=== PATIENT | female | born 1965 | race Hispanic/Latino ===

== ENCOUNTER → 2020-07-23 | Day surgery (SDC) | payer OTHER, SELFPAY ==
[~2020-07-23] MED LIST: FENTANYL CITRATE/PF 100MCG/2 ML INJ ONE; HYOSCYAMINE 0.125 MG TAB ONE; LIDOCAINE HCL 2% LOCAL INJ 5 ML SDV VIAL INJ ONE; MIDAZOLAM HCL 2 MG/2 ML VIAL ONE; PANTOPRAZOLE SO40 MG PO; PROPOFOL IV EMULSION 10 MG/ML 20 ML VIAL ONE; VYTORIN 10-201 EACH PO; XYZAL5 MG PO; ZINC SULFATE220 MG PO
[2020-07-23 16:45] VITALS: BP 113/65
--- NOTE | 2020-07-23 18:21 | Operative Report ---
DATE OF PROCEDURE: 07/23/2020 SURGEON: Jordan Ramsay MD PROCEDURES: EGD with biopsies and a colonoscopy. INDICATIONS FOR EGD: Upper abdominal pain, bloating. INDICATIONS FOR COLONOSCOPY: Colorectal cancer screening. MEDICATIONS: The patient was done under MAC, please see anesthesiologist's note. PROCEDURE IN DETAIL: With the patient in the left lateral decubitus position, a flexible fiberoptic Olympus gastroscope was introduced into the esophagus under direct visualization without any difficulty. There was some patchy erythema noted in the distal esophagus. The scope was then advanced with ease into the stomach, mucosa overlying the antrum and the body revealed some diffuse erythema and [id number] edema, and biopsies were obtained, and sent to stain for H. pylori. There were some a extrinsic compression noted along the anterior wall of the antrum. Pylorus was intubated with ease and the scope was advanced all the way to the second portion of the duodenum. Biopsies were obtained from the proximal second portion and the duodenal bulb. The scope was then withdrawn back into the stomach and retroflexed, and mucosa overlying the fundus and cardia appeared to be grossly unremarkable. The scope was then straightened out, it was subsequently withdrawn. The patient tolerated the procedure well. IMPRESSION: 1. Distal esophagitis. 2. Gastritis, biopsied. 3. Extrinsic compression, anterior wall of the antrum. 4. Rule out sprue. PLAN: 1. Follow up histology. 2. Initiate Protonix 40 mg one p.o. q.a.m. a.c. DESCRIPTION OF PROCEDURE: The patient might benefit from a CAT scan of the abdomen to delineate the nature of the extrinsic compression against the anterior wall of the antrum. The patient was then turned around after adequate lubrication of the anal canal, a flexible fiberoptic Olympus colonoscope was inserted into the rectum with ease and advanced all the way to the cecum. The scope was then withdrawn slowly, mucosa overlying the cecum, ascending colon, transverse colon, descending colon, sigmoid, and rectum grossly appeared to be within normal limits. The scope was then retroflexed into the distal rectum and small internal hemorrhoids were noted, none of which was actively bleeding. The scope was then straightened out, it was subsequently withdrawn. The patient tolerated the procedure well. IMPRESSION: 1. Internal hemorrhoids, none actively bleeding. 2. Initiate high-fiber low-fat diet. 3. Initiate high-fiber supplement. 4. The patient might benefit from a followup colonoscopy in 10 years. MD TATE Lawrence/SHARDA /[id number] cc: DR. JENNY MARVIN
== END | disposition home or self-care (01) ==
LOC: OR 10:33
PROVIDERS: ATTEND Internal Medicine Gastroenterology
DX: Z12.11 Encounter for screening for malignant neoplasm of colon (principal); K29.50 Unspecified chronic gastritis without bleeding; K21.9 Gastro-esophageal reflux disease without esophagitis; K20.90 Esophagitis, unspecified without bleeding; K31.89 Other diseases of stomach and duodenum; A04.8 Other specified bacterial intestinal infections; K64.8 Other hemorrhoids; E78.5 Hyperlipidemia, unspecified; Z01.810 Encounter for preprocedural cardiovascular examination; Z01.812 Encounter for preprocedural laboratory examination; Z20.828 Contact with and (suspected) exposure to other viral communicable diseases
CPT/HCPCS: 43239; 45378; 93005; J2001; J2250; J2704; J3010; U0002

== ENCOUNTER → 2020-08-22 | Outpatient (CLI) | payer OTHER, SELFPAY ==
[~2020-08-22] MED LIST changes: -FENTANYL CITRATE/PF 100MCG/2 ML INJ ONE; -HYOSCYAMINE 0.125 MG TAB ONE; +IOPAMIDOL 370 MG/ML 200 ML INFUS..BTL INJ ONE; -LIDOCAINE HCL 2% LOCAL INJ 5 ML SDV VIAL INJ ONE; -MIDAZOLAM HCL 2 MG/2 ML VIAL ONE; -PROPOFOL IV EMULSION 10 MG/ML 20 ML VIAL ONE; +SODIUM CHLORIDE 0.9% 50ML 50 ML ONE
== END ==
LOC: CT 11:49
PROVIDERS: ATTEND Internal Medicine Gastroenterology
DX: K29.70 Gastritis, unspecified, without bleeding (principal)
CPT/HCPCS: 74177; Q9967